=== PATIENT | female | born 1985 | race Two or more races ===

== ENCOUNTER 2018-06-09 13:37 | Outpatient (CLI) | payer OTHER | END 2018-06-09 13:53 | disposition home or self-care (01) | LOC: SONOGRAMA 13:37 | DX: N60.11 Diffuse cystic mastopathy of right breast (principal); N60.12 Diffuse cystic mastopathy of left breast ==

== ENCOUNTER 2019-09-18 10:23 | Outpatient (CLI) | payer OTHER | END 2019-09-18 10:25 | disposition home or self-care (01) | LOC: SONOGRAMA 10:23 → MAMO-SONO 10:45 | DX: R10.2 Pelvic and perineal pain (principal) ==

== ENCOUNTER → 2019-11-02 | Outpatient (CLI) | payer OTHER | END | disposition home or self-care (01) | LOC: MAMO-SONO 11:15 → SONOGRAMA 11:50 | DX: N84.0 Polyp of corpus uteri (principal) ==

== ENCOUNTER 2020-06-02 15:01 | Outpatient (CLI) | payer OTHER | END 2020-06-02 15:14 | disposition home or self-care (01) | LOC: SONOGRAMA 15:01 | PROVIDERS: ATTEND Surgery | DX: N60.11 Diffuse cystic mastopathy of right breast (principal); N60.12 Diffuse cystic mastopathy of left breast ==

== ENCOUNTER 2020-12-22 14:02 | Outpatient (CLI) | payer OTHER | END 2020-12-22 14:18 | disposition home or self-care (01) | LOC: SONOGRAMA 14:02 | PROVIDERS: ATTEND Surgery | DX: N60.02 Solitary cyst of left breast (principal); N60.01 Solitary cyst of right breast; N60.11 Diffuse cystic mastopathy of right breast; N60.12 Diffuse cystic mastopathy of left breast ==

== ENCOUNTER → 2021-12-04 | Outpatient (CLI) | payer OTHER | END | disposition home or self-care (01) | LOC: SONOGRAMA 12:23 | PROVIDERS: ATTEND Surgery | DX: N60.11 Diffuse cystic mastopathy of right breast (principal); N60.12 Diffuse cystic mastopathy of left breast; N64.59 Other signs and symptoms in breast ==

== ENCOUNTER 2022-01-17 14:32 | Outpatient (CLI) | payer OTHER | END 2022-01-17 14:46 | disposition home or self-care (01) | LOC: SONOGRAMA 14:32 | DX: R10.2 Pelvic and perineal pain (principal) ==

== ENCOUNTER 2022-12-16 11:49 | Outpatient (CLI) | payer OTHER | END 2022-12-16 12:02 | disposition home or self-care (01) | LOC: MAMO-SONO 11:49 | PROVIDERS: ATTEND Surgery | DX: N60.11 Diffuse cystic mastopathy of right breast (principal); N60.12 Diffuse cystic mastopathy of left breast ==

== ENCOUNTER → 2023-09-29 | Outpatient (CLI) | payer OTHER | END | disposition home or self-care (01) | LOC: SONOGRAMA 10:29 | DX: E04.2 Nontoxic multinodular goiter (principal) ==

== ENCOUNTER 2023-12-04 15:06 | Outpatient (CLI) | payer OTHER | END 2023-12-04 15:14 | disposition home or self-care (01) | LOC: SONOGRAMA 15:06 | PROVIDERS: ATTEND Surgery | DX: N60.11 Diffuse cystic mastopathy of right breast (principal); N60.12 Diffuse cystic mastopathy of left breast ==

== ENCOUNTER 2024-12-03 12:44 | Outpatient (CLI) | payer OTHER | END 2024-12-03 12:57 | disposition home or self-care (01) | LOC: MAMO-SONO 12:44 | PROVIDERS: ATTEND Surgery | DX: N60.11 Diffuse cystic mastopathy of right breast (principal); N60.12 Diffuse cystic mastopathy of left breast ==